=== PATIENT | female | born 1965 | race Asian ===

== ENCOUNTER → 2024-12-11 | Outpatient (CLI) | payer BC, SELFPAY ==
[2024-12-11 09:09] LABS: Basophils # (Auto) 0.1 Thou/mm3 (0.0-0.2); Basophils % (Auto) 1 % (0-2.5); Eosinophils % (Auto) 10 % (0-10); Hematocrit 37.7 % (36.0-46.0); Hemoglobin 11.9 g/dL (12.0-16.0); Immature Granulocytes % (Auto) 0 % (0-0); Immature Granulocytes Auto 0.03 Thou/mm3 (0.00-0.00); Lymphocytes # (Auto) 2.5 Thou/mm3 (1.0-4.8); Lymphocytes % (Auto) 24 % (10-50); Mean Corpuscular HGB Conc 31.6 g/dl (31.0-37.0); Mean Corpuscular Hemoglobin 27.8 pg (25.0-35.0); Mean Corpuscular Volume 88 fL (80-100); Monocytes # (Auto) 0.6 Thou/mm3 (0.0-0.8); Monocytes % (Auto) 6 % (0-12); Neutrophils # (Auto) 6.3 Thou/mm3 (1.8-7.7); Neutrophils % (Auto) 60 % (37-80); Nucleated Red Blood Cell % 0 /100 WBC (0); Platelet Count 403 Thou/mm3 (140-440); RDW Standard Deviation 44.9 fL (36.4-46.3); Red Blood Count 4.28 Miln/mm3 (4.00-5.20); White Blood Count 10.5 Thou/mm3 (3.6-11.0)
[2024-12-11 09:32] LABS: Glucose Estimated Average 200 mg/dL (80-131); Hemoglobin A1C 8.6 % Hgb (4.8-6.0)
[2024-12-11 10:18] LABS: Alanine Aminotransferase 8 U/L (10-49); Albumin, Serum 4.6 gm/dL (3.4-4.8); Albumin/Globulin Ratio 0.9 (1.2-2.2); Alkaline Phosphatase 138 U/L (46-116); Anion Gap 10 (7-16); Aspartate Amino Transferase < 10 U/L (0-34); BUN/Creatinine Ratio 19 Ratio (12-20); Bilirubin,Total 0.2 mg/dL (0.3-1.2); Blood Urea Nitrogen 13 mg/dL (9-23); Calcium 10.1 mg/dL (8.3-10.6); Calcium (Corrected) 10.1 mg/dL (8.5-10.1); Carbon Dioxide 27.5 mMol/L (20.0-31.0); Cardiac Risk Estimate 3.4 RATIO (3.7-5.6); Chloride 100 mMol/L (98-107); Cholesterol 114 mg/dL (132-200); Creatinine (Component) 0.7 mg/dL (0.6-1.3); Globulin 4.9 gm/dL (2.3-3.5); Glucose 146 mg/dL (74-106); HDL Cholesterol 34 mg/dL (40-60); LDL Cholesterol,Calculated 47 mg/dL (0-130); Osmolality,Calculated 276 (275-295); Potassium 3.9 mMol/L (3.4-5.1); Sodium 137 mMol/L (136-145); Total Protein 9.5 gm/dL (5.7-8.2); Triglycerides 163 mg/dL (30-150); eGFR > 60 See Note
[2024-12-11 10:53] LABS: Creatinine MALB Rnd Ur 81 mg/dL (30-125); Microalbumin Creat Ratio 440 mg/gCrea (<30); Microalbumin, Random Urine 356 mg/L (0-300)
== END | disposition home or self-care (01) ==
PROVIDERS: PCP Family Medicine; Referring Provider Family Medicine; Visit Provider Family Medicine
DX: E11.65 Type 2 diabetes mellitus with hyperglycemia (principal); E78.1 Pure hyperglyceridemia; D50.0 Iron deficiency anemia secondary to blood loss (chronic)
CPT/HCPCS: 36415; 80053; 80061; 82043; 82570; 83036; 85025

== ENCOUNTER 2024-12-25 14:00 | Outpatient (AMB) | payer BC, SELFPAY ==
--- NOTE | 2024-12-25 14:26 | PD.ORTHCLVIS ---
Med/Allergies Allergies & Medications Allergies No Known Allergies Allergy (Verified 06/12/24 14:39) Exam Exam Patient is in no acute distress and is cooperative with the examination today. Patient has a normal mood and affect. Breathing is nonlabored. In no respiratory distress. She is walking more Bilateral extremities were evaluated and demonstrates sensation intact to light touch. Palpable pedal pulses are present. No significant edema is present. Right knee incision is clean dry and intact. Range of motion is actually pretty preserved and is 0 to 100 degrees X-rays from 06/06/2024 reviewed by me today. I see a total knee replacement good alignment position. 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 She is status post Knee antifungal impregnated spacer placement. She is on fluconazole. She is doing well. We want xrays of both knees. Questionairres Past Medical History Past Medical History Have you ever been diagnosed with any of the following: Neurological Problems Seizures: No Cardiology Problems Congestive Heart Failure: No Hypertension: Yes (TAKES MED) Respiratory Problems Chronic Obstructive Pulmonary Disease (COPD): No (SEASONAL ASTHMA HAS INHALER 2018) Asthma: Yes (SEASONAL USE OF INHALER) Smoking: No Smoking Cessation Counseling: No Smoking Exposure: No Tobacco Use: No Genital/Urinary Problems Renal Disease: No Reproductive Problems Previous Pregnancies: Yes (X3) Musculoskeletal Problems Arthritis: Yes Endocrine Problems Diabetes Mellitus Type 1: No Diabetes Mellitus Type 2: Yes (TAKES PO MED) Other Problems Hospitalization: No Shingles: No Falls: No Blood Transfusions: No Anesthesia Reactions: No Chemotherapy: No Radiation Therapy: No MRSA: No Chicken Pox: Yes Mumps: Yes Surgical History Total Knee Replacement: Yes Subjective Immunization / Flu Flu Vaccine in the Last 12 Months: Yes Flu Vaccine Exclusion Criteria: Already Received History of Present Illness Chief complaint: Right knee pain Patient is a pleasant 59-year-old female status post right knee revision for valley fever. She is doing well currently. She is able to cook and clean and is very happy. She reports the left knee started to bother her. She hsa severe arthritis of the left Review of Systems Review of Systems: All systems negative unless otherwise noted in HPI.
[2024-12-25 14:34] VITALS: BP 170/111; PULSE 73; RESP 18; TEMP 36.1
== END 2024-12-25 14:26 | disposition home or self-care (01) ==
LOC: HODSRG 14:00
PROVIDERS: PCP Family Medicine; Referring Provider Family Medicine; Supervising Provider Orthopaedic Surgery Adult Reconstructive Orthopaedic Surgery; Visit Provider Orthopaedic Surgery Adult Reconstructive Orthopaedic Surgery
DX: T84.53XD Infection and inflammatory reaction due to internal right knee prosthesis, subsequent encounter (principal); Y84.9 Medical procedure, unspecified as the cause of abnormal reaction of the patient, or of later complication, without mention of misadventure at the time of the procedure
CPT/HCPCS: 99213; G0463

== ENCOUNTER → 2025-01-15 | Outpatient (CLI) | payer BC, SELFPAY ==
[2025-01-15 11:28] LABS: Coccid Serology, CF (UCD)* See Sep Rpt
[2025-01-15 13:07] LABS: Alanine Aminotransferase 15 U/L (10-49); Albumin, Serum 4.3 gm/dL (3.4-4.8); Albumin/Globulin Ratio 0.9 (1.2-2.2); Alkaline Phosphatase 132 U/L (46-116); Anion Gap 9 (7-16); Aspartate Amino Transferase 15 U/L (0-34); BUN/Creatinine Ratio 21 Ratio (12-20); Bilirubin,Total 0.2 mg/dL (0.3-1.2); Blood Urea Nitrogen 19 mg/dL (9-23); Carbon Dioxide 28.5 mMol/L (20.0-31.0); Chloride 103 mMol/L (98-107); Creatinine (Component) 0.9 mg/dL (0.6-1.3); Globulin 4.7 gm/dL (2.3-3.5); Glucose 115 mg/dL (74-106); Osmolality,Calculated 282 (275-295); Potassium 4.5 mMol/L (3.4-5.1); Sodium 140 mMol/L (136-145); eGFR > 60 See Note
== END | disposition home or self-care (01) ==
LOC: COPL 11:07
PROVIDERS: PCP Family Medicine; Referring Provider Internal Medicine Infectious Disease; Visit Provider Internal Medicine Infectious Disease
DX: B38.7 Disseminated coccidioidomycosis (principal)
CPT/HCPCS: 36415; 80053; 86171

== ENCOUNTER → 2025-03-21 | Outpatient (CLI) | payer BC, SELFPAY ==
--- NOTE | 2025-03-21 | XR_ITS ---
Examination: Bilateral knees 2 views Right lateral knee left lateral knee 2 views Right axial knee left axial knee 2 views TECHNIQUE: Bilateral AP knees standing single view, bilateral PA knees standing single view flexion Standing right lateral knee left lateral knee 2 views Right axial knee left axial knee 2 views total 6 views Exam date and time: March 21, 2025 0754 hours INDICATIONS: Bilateral knee pain years. FINDINGS: Severe osteopenia Total right knee arthroplasty. Satisfactory alignment No fracture Severe narrowing medial joint space left knee Significant osteoarthritis lateral patellofemoral joints left knee Small knee effusion No fracture IMPRESSION: Total right knee arthroplasty with satisfactory alignment Advanced left knee tricompartment osteoarthritis
== END | disposition home or self-care (01) ==
LOC: CDIM 07:38
PROVIDERS: PCP Family Medicine; Referring Provider Orthopaedic Surgery Adult Reconstructive Orthopaedic Surgery; Visit Provider Orthopaedic Surgery Adult Reconstructive Orthopaedic Surgery
DX: M25.562 Pain in left knee (principal); M25.561 Pain in right knee; Z96.651 Presence of right artificial knee joint
CPT/HCPCS: 73564

== ENCOUNTER 2025-03-26 10:25 | Outpatient (AMB) | payer BC, SELFPAY ==
[2025-03-26 10:36] VITALS: BP 195/94; PULSE 68; RESP 19; TEMP 37.7; O2SAT 94; BMI 37.5
--- NOTE | 2025-03-26 10:36 | PD.ORTHCLVIS ---
Vital signs 03/26/25 10:36 Height 1.6 m Height Method Stated Weight 95.963 kg Weight Measurement Method Standing Scale BMI 37.5 BP 195/94 H Blood Pressure Source Automatic Cuff Blood Pressure Location Right Upper Arm Position Sitting Respiration 19 Pulse 68 Pulse Source Monitor Temp 99.8 F Temp Source Temporal Artery Scan Pulse Oximetry (%) 94 L Oxygen Delivery Method Room Air Med/Allergies Allergies & Medications Allergies No Known Allergies Allergy (Verified 03/26/25 10:37) Medication Reconciliation ferrous sulfate 325 mg (65 mg iron) tablet,delayed release 325 mg PO QDAY 10/25/23 [History Confirmed 03/26/25] fluconazole 200 mg tablet (Diflucan) 200 mg PO QDAY 10/25/23 [History Confirmed 03/26/25] glipizide 5 mg tablet 5 mg PO QDAY 10/25/23 [History Confirmed 03/26/25] nebivolol 20 mg tablet 20 mg PO QDAY 10/25/23 [History Confirmed 03/26/25] oxycodone 5 mg capsule 5 mg PO Q8H PRN 10/25/23 [History Confirmed 03/26/25] potassium chloride 10 mEq capsule,extended release 10 meq PO QDAY 10/25/23 [History Confirmed 03/26/25] simvastatin 20 mg tablet 20 mg PO QDAY 10/25/23 [History Confirmed 03/26/25] valsartan 80 mg tablet 80 mg PO QDAY 10/25/23 [History Confirmed 03/26/25] gabapentin 300 mg capsule 300 mg PO QHS #60 caps 06/12/24 [Rx Confirmed 03/26/25] Exam Exam Patient is in no acute distress and is cooperative with the examination today. Patient has a normal mood and affect. Breathing is nonlabored. In no respiratory distress. She is walking more Bilateral extremities were evaluated and demonstrates sensation intact to light touch. Palpable pedal pulses are present. No significant edema is present. Right knee incision is clean dry and intact. Range of motion is actually pretty preserved and is 0 to 100 degrees X-rays from 06/06/2024 reviewed by me today. I see a total knee replacement good alignment position. 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 She is status post Knee antifungal impregnated spacer placement. She is on fluconazole. She is doing well. Right articulating spacer is still in good position. Left Left knee demonstrate significant arthritis with complete obliteration of the medial joint space. We will continue with conservative treatment Office Procedures GNS Level of Care Nursing/Assessment Patient Status: Established Patient Nursing Assessment/Reassesment: Medication Reconciliation, Update PMH in EMR and Vital Signs Coordination of Care: Complex Care and Chronic Disease 1-5, Consent,records obtained, informed consent, Education Simp Pt/Fam, Results/Orders obtained and Staff clarify orders Established Patient Charge Established Patient Point Assignment: 90 Established Patient Point Charge: EP Level 3 (80-115) MA Intake Visit Data Collection New Patient or Established: Established Patient (seen at [facility] within 3 years) Reason for Visit:: FU TKA RT KNEE Seen by Clinical Staff ONLY (RN/MA): No Dental Equipment Mechanic Required: No PCP or OBGYN visit in last 3 months: Yes Hx Now: No Do You Feel Safe at Home: Yes Authorities Contacted: N/A Questionairres Past Medical History Past Medical History Have you ever been diagnosed with any of the following: Neurological Problems Seizures: No Cardiology Problems Congestive Heart Failure: No Hypertension: Yes (TAKES MED) Respiratory Problems Chronic Obstructive Pulmonary Disease (COPD): No (SEASONAL ASTHMA HAS INHALER 2018) Asthma: Yes (SEASONAL USE OF INHALER) Smoking: No Smoking Cessation Counseling: No Smoking Exposure: No Tobacco Use: No Genital/Urinary Problems Renal Disease: No Reproductive Problems Previous Pregnancies: Yes (X3) Musculoskeletal Problems Arthritis: Yes Endocrine Problems Diabetes Mellitus Type 1: No Diabetes Mellitus Type 2: Yes (TAKES PO MED) Other Problems Hospitalization: No Shingles: No Falls: No Blood Transfusions: No Anesthesia Reactions: No Chemotherapy: No Radiation Therapy: No MRSA: No Chicken Pox: Yes Mumps: Yes Surgical History Total Knee Replacement: Yes Subjective Immunization / Flu Flu Vaccine in the Last 12 Months: Yes Flu Vaccine Exclusion Criteria: Already Received History of Present Illness Chief complaint: Right knee pain Patient is a pleasant 59-year-old female status post right knee revision for valley fever. She is doing well currently. She is able to cook and clean and is very happy. She reports the left knee started to bother her. She has severe arthritis of the left Review of Systems Review of Systems: All systems negative unless otherwise noted in HPI.
== END 2025-03-26 10:55 | disposition home or self-care (01) ==
LOC: HODSRG 10:25
PROVIDERS: PCP Family Medicine; Referring Provider Family Medicine; Supervising Provider Orthopaedic Surgery Adult Reconstructive Orthopaedic Surgery; Visit Provider Orthopaedic Surgery Adult Reconstructive Orthopaedic Surgery
DX: T84.59XA Infection and inflammatory reaction due to other internal joint prosthesis, initial encounter (principal); M17.12 Unilateral primary osteoarthritis, left knee; E11.9 Type 2 diabetes mellitus without complications; Z96.651 Presence of right artificial knee joint; I10 Essential (primary) hypertension
CPT/HCPCS: 99213; G0463

== ENCOUNTER → 2025-08-14 | Outpatient (CLI) | payer BC, SELFPAY ==
[2025-08-14 08:46] LABS: Glucose Estimated Average 217 mg/dL (80-131); Hemoglobin A1C 9.2 % Hgb (4.8-6.0)
[2025-08-14 09:05] LABS: Alanine Aminotransferase 20 U/L (10-49); Albumin, Serum 4.2 gm/dL (3.4-4.8); Albumin/Globulin Ratio 0.9 (1.2-2.2); Alkaline Phosphatase 129 U/L (46-116); Anion Gap 10 (7-16); Aspartate Amino Transferase 24 U/L (0-34); BUN/Creatinine Ratio 15 Ratio (12-20); Bilirubin,Total 0.3 mg/dL (0.3-1.2); Blood Urea Nitrogen 12 mg/dL (9-23); Calcium 10.2 mg/dL (8.3-10.6); Calcium (Corrected) 10.2 mg/dL (8.5-10.1); Carbon Dioxide 27.0 mMol/L (20.0-31.0); Cardiac Risk Estimate 3.1 RATIO (3.7-5.6); Chloride 103 mMol/L (98-107); Cholesterol 115 mg/dL (132-200); Creatinine (Component) 0.8 mg/dL (0.6-1.3); Globulin 4.5 gm/dL (2.3-3.5); Glucose 198 mg/dL (74-106); HDL Cholesterol 37 mg/dL (40-60); LDL Cholesterol,Calculated 42 mg/dL (0-130); Osmolality,Calculated 285 (275-295); Potassium 4.3 mMol/L (3.4-5.1); Sodium 140 mMol/L (136-145); Total Protein 8.7 gm/dL (5.7-8.2); Triglycerides 179 mg/dL (30-150); eGFR > 60 See Note
[2025-08-14 09:10] LABS: Creatinine MALB Rnd Ur 60 mg/dL (30-125); Microalbumin Creat Ratio 425 mg/gCrea (<30); Microalbumin, Random Urine 255 mg/L (0-300)
== END | disposition home or self-care (01) ==
LOC: COPL 07:01
PROVIDERS: PCP Family Medicine; Referring Provider Family Medicine; Visit Provider Family Medicine
DX: E11.65 Type 2 diabetes mellitus with hyperglycemia (principal); E78.1 Pure hyperglyceridemia
CPT/HCPCS: 36415; 80053; 80061; 82043; 82570; 83036